=== PATIENT | female | born 1970 | race Caucasian/White ===

== ENCOUNTER 2017-05-26 16:49 | Emergency (ER) | payer MEDICAID ==
[~2017-05-26] VITALS: Ht 162.6 cm; Wt 63.0 kg
[2017-05-26 17:08] VITALS: BP_SYST 122
[2017-05-26] MEDS ORDERED: BACITRACIN 1 GM OINT TP ONE (18:45)
[2017-05-26] MEDS ORDERED: DIPH-TET-PERTUS Vaccine 0.5 ML VIAL (ADACEL) I.M. ONE (18:45)
[2017-05-26] MEDS ORDERED: IBUPROFEN 600 MG TABLET PO ONE (18:45)
[2017-05-26 19:42] VITALS: BP_SYST 122
== END 2017-05-26 19:42 | disposition home or self-care (01) ==
LOC: SED 16:49
DX: S56.812A Strain of other muscles, fascia and tendons at forearm level, left arm, initial encounter (principal); W01.0XXA Fall on same level from slipping, tripping and stumbling without subsequent striking against object, initial encounter; Y93.89 Activity, other specified; Y92.89 Other specified places as the place of occurrence of the external cause; Y99.8 Other external cause status
CPT/HCPCS: 90715; 99284

== ENCOUNTER 2017-06-25 21:35 | Emergency (ER) | payer MEDICAID ==
[~2017-06-25] VITALS: Ht 162.6 cm; Wt 54.4 kg
[2017-06-25 21:38] VITALS: BP_SYST 157
[2017-06-25 23:26] LABS: BILIRUBIN,URINE NEGATIVE (NEGATIVE); CLARITY/URINE HAZY (CLEAR); COLOR,URINE YELLOW (YELLOW); GLUCOSE,URINE NEGATIVE (NEGATIVE); KETONES,URINE NEGATIVE (NEGATIVE); LEUKOCYTE ESTERASE ,URINE TRACE (NEGATIVE); NITRITE, URINE POSITIVE (NEGATIVE); PROTEIN URINE NEGATIVE (NEGATIVE); UROBILINOGEN,URINE 0.2 (0.2-1.0)
[2017-06-25 23:30] LABS: BLOOD, URINE TRACE (NEGATIVE)
[2017-06-25 23:36] LABS: BACTERIA,URINE MANY /HPF (None Seen); RBC,URINE 0-3 /HPF (0-3)
[2017-06-26] MEDS ORDERED: NACL 0.9% 1,000 ML IV ONE (00:11)
[2017-06-26] MEDS ORDERED: KETOROLAC TROMETHAMINE 30 MG VIAL IVP ONE (00:15)
[2017-06-26] MEDS ORDERED: ONDANSETRON HCL 4 MG/2 ML VIAL IVP ONE (00:15)
[2017-06-26 00:38] LABS: EOSINOPHILS # (AUTO) 0.3 K/uL (0.0-0.4); WHITE BLOOD COUNT (AUTO) 11.4 K/uL (4.8-10.8)
[2017-06-26 00:40] LABS: BASOPHILS % (AUTO) 0.4 % (0.0-2.0); CALCIUM 9.6 mg/dL (8.4-11.0); CREATININE 0.76 mg/dL (0.55-1.30); EOSINOPHILS % (AUTO) 2.6 % (0.0-4.0); HEMATOCRIT 46.6 % (36-48); HEMOGLOBIN 15.9 g/dL (12.0-16.0); LYMPHOCYTES # (AUTO) 2.5 K/uL (1.0-5.5); LYMPHOCYTES % (AUTO) 21.5 % (20.5-51.5); MEAN CORPUSCULAR HEMOGLOBIN 32 pg (27-31); MEAN CORPUSCULAR HGB CONC 34 % (32-36); MEAN CORPUSCULAR VOLUME 95 fL (79.0-98.0); MONOCYTES # (AUTO) 0.6 K/uL (0.0-1.0); MONOCYTES % (AUTO) 5.2 % (1.7-9.3); NEUTROPHILS % (AUTO) 70.3 % (40.0-70.0); PLATELET COUNT (AUTO) 340 K/uL (130-430); POTASSIUM 3.7 mmol/L (3.5-5.1); RED BLOOD CELL COUNT(AUTO) 4.92 MIL/uL (4.2-6.2); RED CELL DISTRIBUTION WIDTH 12.2 % (9.0-15.0)
[2017-06-26 00:46] LABS: TOTAL BILIRUBIN 0.5 mg/dL (0.0-1.0)
[2017-06-26 02:17] VITALS: BP_SYST 142
== END 2017-06-26 02:17 | disposition home or self-care (01) ==
LOC: SED 21:35
DX: K29.00 Acute gastritis without bleeding (principal); N39.0 Urinary tract infection, site not specified; R03.0 Elevated blood-pressure reading, without diagnosis of hypertension; Z86.19 Personal history of other infectious and parasitic diseases
CPT/HCPCS: 36415; 80053; 81000; 81025; 83690; 85025; 87086; 87186; 96361; 96374; 96375; 99284; J1885; J2405; J7030

== ENCOUNTER 2019-04-04 20:03 | Emergency (ER) | payer MEDICAID ==
[~2019-04-04] VITALS: Ht 162.6 cm; Wt 54.4 kg
[2019-04-04 20:23] VITALS: BP_SYST 134
== END 2019-04-04 22:47 | disposition left against medical advice (07) ==
LOC: SED 20:03
DX: R05 Cough (principal); R09.81 Nasal congestion; H92.03 Otalgia, bilateral; Z53.21 Procedure and treatment not carried out due to patient leaving prior to being seen by health care provider